=== PATIENT | male | born 1960 | race Caucasian/White ===

== ENCOUNTER 2017-06-26 14:51 | Outpatient (CLI) | payer OTHER ==
[2017-06-26 12:59] LABS: ALBUMIN 3.8 g/dL (3.2-5.5); ALBUMIN/GLOBULIN RATIO 1.2 (1.0-2.2); BILIRUBIN,TOTAL 0.5 mg/dL (0.2-1.0); CALCIUM 9.4 mg/dL (8.5-10.3); CREATININE 0.7 mg/dL (0.6-1.2); TOTAL PROTEIN 6.9 g/dL (6.7-8.2)
[2017-06-28 18:31] LABS: HDL LARGE 3892 nmol/L (4334-10815); LDL PARTICLE NUMBER 985 nmol/L (1016-2185); LDL PATTERN B Pattern (A); LDL PEAK SIZE 212.6 Angstrom (> OR = 218.2); LDL SMALL 249 nmol/L (123-441)
== END 2017-06-26 14:52 | disposition home or self-care (01) ==
LOC: LAB.N 14:51
PROVIDERS: ATTEND Specialist
DX: I25.10 Atherosclerotic heart disease of native coronary artery without angina pectoris (principal); E78.5 Hyperlipidemia, unspecified; I10 Essential (primary) hypertension; F17.200 Nicotine dependence, unspecified, uncomplicated; R60.0 Localized edema
CPT/HCPCS: 36415; 80053; 81599; 82465; 83704; 83718; 84478

== ENCOUNTER 2018-08-05 10:20 | Outpatient (CLI) | payer OTHER ==
[2018-08-05 12:36] LABS: ALBUMIN 3.8 g/dL (3.2-5.5); ALBUMIN/GLOBULIN RATIO 1.2 (1.0-2.2); BILIRUBIN,TOTAL 0.6 mg/dL (0.2-1.0); CALCIUM 8.9 mg/dL (8.5-10.3); CREATININE 0.7 mg/dL (0.6-1.2); TOTAL PROTEIN 6.9 g/dL (6.7-8.2)
[2018-08-09 07:26] LABS: HDL LARGE 5234 nmol/L (3382-9376); LDL PARTICLE NUMBER 1290 nmol/L (732-2035); LDL PATTERN B Pattern (A); LDL PEAK SIZE 210.3 Angstrom (> OR = 217.4); LDL SMALL 291 nmol/L (85-473)
== END 2018-08-05 23:59 | disposition home or self-care (01) ==
LOC: LAB.N 10:20
PROVIDERS: ATTEND Specialist
DX: E78.5 Hyperlipidemia, unspecified (principal)
CPT/HCPCS: 36415; 80053; 81599; 82465; 83704; 83718; 84478

== ENCOUNTER 2019-11-26 12:36 | Outpatient (CLI) | payer BC ==
[2019-11-26 13:39] LABS: ALBUMIN 3.8 g/dL (3.2-5.5); ALBUMIN/GLOBULIN RATIO 1.3 (1.0-2.2); BILIRUBIN,TOTAL 0.7 mg/dL (0.2-1.0); CREATININE 0.7 mg/dL (0.6-1.2); TOTAL PROTEIN 6.7 g/dL (6.7-8.2)
[2019-11-30 09:19] LABS: HDL LARGE 4673 nmol/L (>6729); LDL PARTICLE NUMBER 984 nmol/L (<1138); LDL PATTERN B Pattern (A); LDL PEAK SIZE 207.6 Angstrom (>222.9); LDL SMALL 209 nmol/L (<142)
== END 2019-11-26 12:37 | disposition home or self-care (01) ==
LOC: LAB 12:36
PROVIDERS: ATTEND Specialist
DX: E78.5 Hyperlipidemia, unspecified (principal); I10 Essential (primary) hypertension
CPT/HCPCS: 36415; 80053; 80061; 81599; 83704; 83735

== ENCOUNTER 2020-12-09 08:12 | Outpatient (CLI) | payer BC ==
[2020-12-09 12:10] LABS: ALBUMIN 4.2 g/dL (3.2-5.5); ALBUMIN/GLOBULIN RATIO 1.4 (1.0-2.2); BILIRUBIN,TOTAL 0.7 mg/dL (0.2-1.0); CALCIUM 9.3 mg/dL (8.5-10.3); CREATININE 0.7 mg/dL (0.6-1.2); MAGNESIUM 1.9 mg/dL (1.7-2.8); POTASSIUM 4.2 mmol/L (3.5-5.0); TOTAL PROTEIN 7.3 g/dL (6.7-8.2)
[2020-12-13 20:51] LABS: HDL LARGE 4308 nmol/L (>6729); LDL MEDIUM 247 nmol/L (<215); LDL PARTICLE NUMBER 1176 nmol/L (<1138); LDL PATTERN B Pattern (A); LDL PEAK SIZE 213.3 Angstrom (>222.9); LDL SMALL 315 nmol/L (<142)
== END 2020-12-09 08:13 | disposition home or self-care (01) ==
LOC: LAB.N 08:12
PROVIDERS: ATTEND Specialist
DX: I10 Essential (primary) hypertension (principal); E78.5 Hyperlipidemia, unspecified
CPT/HCPCS: 36415; 80053; 80061; 81599; 83704; 83735

== ENCOUNTER 2021-04-03 08:00 | Outpatient (CLI) | payer BC ==
[2021-04-03 20:58] LABS: HCT - HEMATOCRIT 43.8 % (42.0-52.0); HGB - HEMOGLOBIN 14.1 g/dL (14.0-18.0); MEAN CORPUSCULAR HEMOGLOBIN 29.2 pg (27.0-31.0); MEAN CORPUSCULAR HGB CONC 32.2 g/dL (32.0-36.0); MEAN CORPUSCULAR VOLUME 90.7 fL (80.0-94.0); RED BLOOD COUNT 4.83 10^6/uL (4.70-6.10); RED CELL DISTRIBUTION WIDTH 14.5 % (12.0-15.0); WHITE BLOOD COUNT 8.1 x10^3/uL (4.8-10.8)
[2021-04-03 21:17] LABS: ALBUMIN/GLOBULIN RATIO 1.3 (1.0-2.2); BILIRUBIN,TOTAL 0.4 mg/dL (0.2-1.0); CALCIUM 9.5 mg/dL (8.5-10.3); CREATININE 0.9 mg/dL (0.6-1.2); POTASSIUM 4.8 mmol/L (3.5-5.0); TOTAL PROTEIN 7.2 g/dL (6.7-8.2)
== END 2021-04-03 23:59 | disposition home or self-care (01) ==
LOC: LAB.N 08:00
PROVIDERS: ATTEND Nurse Practitioner
DX: R60.0 Localized edema (principal)
CPT/HCPCS: 36415; 80053; 83880; 85027; 87070; 87205

== ENCOUNTER 2021-04-14 09:07 | Outpatient (CLI) | payer BC ==
[2021-04-14 12:57] LABS: ALBUMIN 4.2 g/dL (3.2-5.5); ALBUMIN/GLOBULIN RATIO 1.4 (1.0-2.2); BILIRUBIN,TOTAL 0.8 mg/dL (0.2-1.0); CALCIUM 9.7 mg/dL (8.5-10.3); CREATININE 0.9 mg/dL (0.6-1.2); POTASSIUM 4.7 mmol/L (3.5-5.0); TOTAL PROTEIN 7.3 g/dL (6.7-8.2)
== END 2021-04-14 09:08 | disposition home or self-care (01) ==
LOC: LAB.N 09:07
DX: I10 Essential (primary) hypertension (principal); E78.5 Hyperlipidemia, unspecified
CPT/HCPCS: 36415; 80053; 80061; 81599; 83704; 83735